=== PATIENT | female | born 1965 | race Caucasian/White ===

== ENCOUNTER 2020-09-18 17:40 | Emergency (ER) | payer OTHER ==
[~2020-09-18] VITALS: Ht 160 cm; Wt 83.0 kg
--- NOTE | 2020-09-18 18:12 | ED Headache ---
General Chief Complaint: Head/Cervical Problems Stated Complaint: HEADACHES/MIGRAINES FROM HEAD INJURY Source: patient History of Present Illness Date Seen by Provider: Sep 18, 2020 Time Seen by Provider: 18:00 Initial Comments PT ARRIVES VIA POV FROM HOME STATES 2 WEEKS AGO, SHE FELL IN THE BATHROOM AND HIT THE RIGHT SIDE OF HER HEAD ON TOILET AND THE BATHTUB NO LOSS OF CONSCIOUSNESS, BUT WAS DAZED FOR A LITTLE BIT SINCE THEN SHE HAS HAD A CONSTANT HEADACHE, MOSTLY ON RIGHT SIDE OF HEAD AND BEHIND RIGHT EYE HAS HAD DIZZINESS AND NAUSEA EVER SINCE HAS BEEN A LITTLE BIT FORGETFUL SINCE HITTING HER HEAD HAD NECK PAIN INITIALLY, BUT NOT SORE NOW, BUT STILL A LITTLE SORE NO PARESTHESIAS OR MOTOR DEFICITS NO VISION CHANGES DID NOT SEEK CARE AT THE TIME OF INJURY WAS SEEN AT [facility] ON Monday09/16/20 FOR THIS PROBLEM COVID TEST WAS NEGATIVE AT THAT TIME. NO OTHER TESTS WERE DONE. WAS STARTED ON "MIGRAINE" MEDICATION--[facility] STATES IT HELPED A LITTLE AT FIRST, BUT NOW IT IS NOT HELPING HAS NOT TAKEN ANYTHING ELSE FOR PAIN HAS NOT ATTEMPTED TO CONTACT HER PCP FOR THIS--SEES A IN [place]--PT MOVED HERE 8 MONTHS AGO FROM [place], AND HAS NOT ESTABLISHED WITH ANYONE HERE. PT DENIES ANY HISTORY OF HEADACHES PRIOR TO THIS INJURY NO FEVER OR RECENT ILLNESS PCP: DR. RODRIGUEZ WITH [facility] IN [place] Allergies and Home Medications Allergies Coded Allergies: Penicillins (Verified Allergy, Unknown, 09/18/20) bismuth subsalicylate (Verified Allergy, Unknown, 09/18/20) ibuprofen (Verified Allergy, Unknown, 09/18/20) meperidine (Verified Allergy, Unknown, 09/18/20) morphine (Verified Allergy, Unknown, 09/18/20) Uncoded Allergies: TAPE (Allergy, Unknown, 09/18/20) Home Medications Cyclobenzaprine HCl 10 Mg Tablet, 10 MG PO Q8H PRN for SPASMS Prescribed by: JIA MURILLO on 09/18/201857 Methylprednisolone 4 Mg Tab.ds.pk, 4 MG PO UD PER DOSE PACK INSTRUCTIONS Prescribed by: JIA MURILLO on 09/18/201857 Patient Home Medication List Home Medication List Reviewed: Yes Review of Systems Review of Systems Constitutional: see HPI, dizziness Eyes: See HPI; Denies Blurred Vision, Denies Decreased Acuity Ears, Nose, Mouth, Throat: no symptoms reported Respiratory: no symptoms reported Cardiovascular: no symptoms reported Gastrointestinal: see HPI, nausea; No vomiting Genitourinary: no symptoms reported Musculoskeletal: see HPI Skin: no symptoms reported Psychiatric/Neurological: See HPI, Headache; Denies Numbness, Denies Par esthesia, Denies Seizure, Denies Tingling, Denies Weakness Past Lpjgpeh-Hikfjl-Jtzmmc Hx Past Med/Social Hx: Reviewed and Corrections made Patient Social History Alcohol Use: Denies Use Drug of Choice: DENIES Smoking Status: Never a Smoker Past Medical History Surgeries: Yes (C-SPINE SURGERY; PANCREAS SURGERY) Abdominal, Appendectomy, Gallbladder, Orthopedic, Pancreatic Respiratory: No Cardiac: No Neurological: No Female 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 oz. kg; BMI Method: General Appearance: WD/WN, no apparent distress, other (WALKS WITHOUT DIFFICULTY, DOES NOT APPEAR TO BE IN ANY DISCOMFORT OR DISTRESS) HEENT: PERRL/EOMI, normal ENT inspection, TMs normal, pharynx normal Neck: non-tender, full range of motion, supple, normal inspection Cardiovascular: regular rate, rhythm, no murmur Respiratory: normal breath sounds Gastrointestinal: non tender, soft Back: normal inspection, no CVA tenderness, no vertebral tenderness Extremities: normal inspection, no pedal edema, normal capillary refill Psychiatric: alert, oriented x 3 Crainal Nerves: normal hearing, normal speech, PERRL Coordination/Gait: normal finger to nose, normal gait, negative Romberg's sign Motor/Sensory: no motor deficit, no sensory deficit, no pronator drift Skin: normal color, warm/dry, other (NO EXTERNAL EVIDENCE OF TRAUMA ANYWHERE) Progress/Results/Core Measures Results/Orders My Orders Orders - CHIDI,JIA K DO Ct Head/Cervical Spine Wo (09/18/20 18:05) Orphenadrine Inj (Ed Only) (Norflex Inje (09/18/20 19:00) Methylprednisolone Sod Succ (Solu-Medrol (09/18/20 19:00) Medications Given in ED Current Medications Medications Dose Ordered Sig/Cheryl Route Start Time Stop Time Status Last Admin Dose Admin Methylprednisolone Sodium Succinate 125 mg ONCE ONCE IM 09/18/20 19:00 09/18/20 19:01 DC 09/18/20 19:05 125 MG Orphenadrine Citrate 60 mg ONCE ONCE IM 09/18/20 19:00 09/18/20 19:01 DC 09/18/20 19:05 60 MG Vital Signs/I&O 09/18/20 09/18/20 17:54 19:18 Temp 37.8 37.8 Pulse 84 92 Resp 18 18 B/P (MAP) 139/111 (120) 145/93 (120) Pulse Ox 97 95 O2 Delivery Room Air Diagnostic Imaging Comments CT HEAD/CERVICAL SPINE--PER RADIOLOGIST REPORT AT 1851 IMPRESSION: 1. No CT evidence of an acute intracranial abnormality. 2. Previous ACDF of C6-C7 with background features of degenerative disc disease and facet arthropathy. No acute fracture or traumatic malalignment demonstrated. Reviewed: Reviewed by Me Departure Impression Primary Impression: Concussion without loss of consciousness Additional Impression: Post concussion syndrome Disposition: 01 HOME, SELF-CARE Condition: Stable Departure-Patient Inst. Decision time for Depature: 18:55 Referrals: NO,LOCAL PHYSICIAN (PCP/Family) Primary Care Physician Patient Instructions: Concussion, Adult ED, Post-Concussion Syndrome ED Add. Discharge Instructions: LOTS OF CLEAR LIQUIDS TYLENOL NEEDED FOR PAIN FOLLOW UP WITH YOUR DR NEXT WEEK FOR FURTHER CARE All discharge instructions reviewed with patient and/or family. Voiced understanding. Scripts Cyclobenzaprine HCl (Cyclobenzaprine HCl) 10 Mg Tablet 10 MG PO Q8H PRN for SPASMS, #15 TAB 0 Refills Prov: JIA MURILLO DO 09/18/20 Methylprednisolone (Medrol) 4 Mg Tab.ds.pk 4 MG PO UD for 6 Days, #21 PKG PER DOSE PACK INSTRUCTIONS Prov: JIA MURILLO DO 09/18/20 JIA MURILLO DO Sep 18, 2020 18:12
--- NOTE | 2020-09-18 18:47 | Diagnostic Imaging Report ---
PROCEDURE: CT head and CT cervical spine without contrast. TECHNIQUE: Multiple contiguous axial images were obtained through the brain and cervical spine without the use of intravenous contrast. Sagittal and coronal reformations through the cervical spine were then performed. Auto Exposure Controls were utilized during the CT exam to meet ALARA standards for radiation dose reduction. INDICATION: Fall 2 weeks prior. Persistent headaches. FINDINGS: The CT of the head demonstrates no evidence of an acute intracranial abnormality. There is no evidence of intracranial hemorrhage. There is no intracranial mass effect or shift. There is no hydrocephalus. There is no abnormal extra-axial fluid collection. Hung and white matter differentiation appear maintained. There is no abnormal low density within the basal ganglia or the miguel a. There are no findings of vasogenic edema. There is no calvarial fracture. The mastoids appear clear. The paranasal sinuses clear. Orbital contents unremarkable. Cervical spine demonstrates operative changes of a previous ACDF of C6-C7. There is reversal of the cervical lordosis. Alignment is normal. There are normal relationships of the craniocervical junction. The facets are normally aligned. There are multilevel endplate changes and facet arthropathy but no findings of an acute cervical spine fracture. IMPRESSION: 1. No CT evidence of an acute intracranial abnormality. 2. Previous ACDF of C6-C7 with background features of degenerative disc disease and facet arthropathy. No acute fracture or traumatic malalignment demonstrated. Dictated by: Dictated on workstation # [id number]
[2020-09-18] MEDS ORDERED: METH4TAB PO (18:58)
[2020-09-18] MEDS ORDERED: CYCL10TA9 PO (18:58)
[2020-09-18] MEDS ORDERED: ORPHENADRINE 60 MG/2 ML (NORFLEX) AMP (ED ONLY) IM ONE (19:00)
[2020-09-18] MEDS ORDERED: methylPREDNISolone 125 MG (Solu-MEDROL) VIAL IM ONE (19:00)
[2020-09-18 19:18] VITALS: BP 145/93
== END 2020-09-18 19:19 | disposition home or self-care (01) ==
LOC: ER 17:45
DX: S06.0X0A Concussion without loss of consciousness, initial encounter (principal); Z88.5 Allergy status to narcotic agent; Z86.16 Personal history of COVID-19; Z79.52 Long term (current) use of systemic steroids; W18.2XXA Fall in (into) shower or empty bathtub, initial encounter
CPT/HCPCS: 70450; 72125